=== PATIENT | male | born 1990 | race Caucasian/White ===

== ENCOUNTER 2016-12-17 00:46 | Emergency (ER) | payer SELFPAY ==
[2016-12-17 00:49] VITALS: BP 130/79
--- NOTE | 2016-12-17 02:09 | EDM.PDOC ---
ED HPI GENERAL MEDICAL PROBLEM - General Chief Complaint: General Stated Complaint: passed out and fell down stairs Time Seen by Provider: 12/17/16 01:00 Source of Information: Reports: Patient History Limitations: Reports: No Limitations - History of Present Illness INITIAL COMMENTS - FREE TEXT/NARRATIVE: Tennille is a 26 yo male who presents to the ER ambulatory with complaints of passing out. States this evening he was in his garage and had a couple shots of alcohol. Admits he wasn't feeling well and decided to go into the house to lay down. After getting his shoes off he became flushed, weak and dizzy. Next thing he knew his legs buckled and fell down the stairs. States he thinks it was very brief and lasted possibly 1 minute. When he came to he continued to feel warm. Admits to discomfort in the left hip/knee area. Denies any discomfort with ambulation however. States presently he feels his normal self. Onset: Today Duration: Resolved Prior to Arrival Location: Reports: Generalized Left Hip Pain Score (Numeric/FACES): 5 - Related Data Allergies Allergy/AdvReac Type Severity Reaction Status Date / Time Penicillins Allergy Mild Hives Verified 12/17/16 00:49 Home Meds: Home Meds Acetaminophen [Tylenol] 650 mg PO ASDIRECTED PRN 07/09/14 [History] Ibuprofen 400 mg PO Q6HR PRN 08/09/14 [History] Levothyroxine 1 tab PO DAILY 12/17/16 [History] Lisinopril 1 tab PO DAILY 12/17/16 [History] Past Medical History - Past Health History Medical/Surgical History: Denies Medical/Surgical History Cardiovascular History: Reports: Hypertension Respiratory History: Reports: Asthma Other Respiratory History: seasonal allergies Other Musculoskeletal History: broken leg when was young. right hand fracture last week Social & Family History - Family History Family Medical History: Noncontributory - Tobacco Use Smoking Status *Q: Current Every Day Smoker Years of Tobacco use: 4 Packs/Tins Daily: 0.5 Used Tobacco, but Quit: No Month Tobacco Last Used: January Second Hand Smoke Exposure: Yes - Alcohol Use Days Per Week of Alcohol Use: 0 Number of Drinks Per Day: 5 Total Drinks Per Week: 0 - Recreational Drug Use Recreational Drug Use: Yes Drug Use in Last 12 Months: Yes Recreational Drug Type: Reports: Marijuana/Hashish Recreational Drug Use Frequency: Socially - Living Situation & Occupation Occupation: Employed ED ROS GENERAL - Review of Systems Review Of Systems: See Below Constitutional: Reports: Weakness (resolved). Denies: Fever, Chills, Diaphoresis HEENT: Reports: No Symptoms Respiratory: Denies: Shortness of Breath, Wheezing, Cough Cardiovascular: Reports: Lightheadedness (resolved). Denies: Chest Pain, Dyspnea on Exertion, Palpitations GI/Abdominal: Reports: No Symptoms : Reports: No Symptoms Musculoskeletal: Reports: Leg Pain (left hip/knee). Denies: Neck Pain, Back Pain Skin: Reports: Other (abrasion to left hanley) Neurological: Reports: Dizziness (resolved), Syncope. Denies: Confusion, Headache, Numbness, Pre-Existing Deficit, Seizure, Tingling, Difficulty Walking , Gait Disturbance Psychiatric: Reports: No Symptoms ED EXAM, GENERAL - Physical Exam Exam: See Below Exam Limited By: No Limitations General Appearance: Alert, WD/WN, No Apparent Distress Eye Exam: Bilateral Eye: EOMI, Normal Inspection, PERRL Ears: Normal External Exam, Normal Canal, Hearing Grossly Normal, Normal TMs Nose: Normal Inspection, Normal Mucosa, No Blood Throat/Mouth: Normal Inspection, Normal Lips, Normal Teeth, Normal Gums, Normal Oropharynx, Normal Voice, No Airway Compromise Head: Atraumatic, Normocephalic. No: Facial Swelling Neck: Normal Inspection, Supple, Full Range of Motion Respiratory/Chest: No Respiratory Distress, Lungs Clear, Normal Breath Sounds, No Accessory Muscle Use Cardiovascular: Normal Peripheral Pulses, Regular Rate, Rhythm, No Edema, No Murmur GI/Abdominal: Normal Bowel Sounds, Soft, Non-Tender, No Organomegaly, No Distention, No Abnormal Bruit, No Mass Extremities: Normal Range of Motion (left hip and knee), Other (negative anterior and posterior drawer, no instability to left knee. Negative varus and valgus stretch. ) Neurological: Alert, Oriented, CN II-XII Intact, Normal Cognition, Normal Gait, No Motor/Sensory Deficits Psychiatric: Normal Affect, Normal Mood Skin Exam: Warm, Dry, Intact, Normal Color, Other (superficial abrasion to left lower hanley) Course - Vital Signs Last Recorded V/S: Last Vital Signs Temp 99.2 F 12/17/16 00:47 Pulse 97 12/17/16 00:47 Resp 18 12/17/16 00:47 BP 130/79 12/17/16 00:47 Pulse Ox 92 L 12/17/16 00:47 - Orders/Labs/Meds Orders: Active Orders 24 hr Category Date Time Status BMP [BASIC METABOLIC PANEL,BMP] [CHEM] Stat Lab 12/17/16 01:47 Ordered CBC WITH AUTO DIFF [HEME] Stat Lab 12/17/16 01:46 Ordered CREATINE KINASE,CK [CHEM] Stat Lab 12/17/16 01:46 Ordered TROPONIN I [CHEM] Stat Lab 12/17/16 01:46 Ordered EKG 12 Lead [EK] Routine Ther 12/17/16 01:46 Ordered Departure - Departure Time of Disposition: 02:39 Disposition: Home, Self-Care 01 Condition: Good Clinical Impression: Vaso vagal episode - Discharge Information Instructions: Vasovagal Syncope, Adult Referrals: Constance Barba PA-C [Primary Care Provider] - Additional Instructions: 1) Vasovagal handout given. 2) If symptoms return or any new onset of symptoms, recommend returning for further evaluation, as discussed. 3) Rest tonight 4) Encourage pushing fluids, drinking moderate amount of water daily 5) Laboratory work was stable, no concerning findings. - Problem List & Annotations (1) Vaso vagal episode SNOMED Code(s): 519876461 Code(s): R55 - SYNCOPE AND COLLAPSE Status: Acute Current Visit: Yes - Problem List Review Problem List Initiated/Reviewed/Updated: Yes - My Orders Last 24 Hours: My Active Orders 12/17/16 01:46 CBC WITH AUTO DIFF [HEME] Stat CREATINE KINASE,CK [CHEM] Stat TROPONIN I [CHEM] Stat EKG 12 Lead [EK] Routine 12/17/16 01:47 BMP [BASIC METABOLIC PANEL,BMP] [CHEM] Stat - Assessment/Plan Last 24 Hours: My Active Orders 12/17/16 01:46 CBC WITH AUTO DIFF [HEME] Stat CREATINE KINASE,CK [CHEM] Stat TROPONIN I [CHEM] Stat EKG 12 Lead [EK] Routine 12/17/16 01:47 BMP [BASIC METABOLIC PANEL,BMP] [CHEM] Stat Plan: Laboratory work was grossly unremarkable. No concerning findings on exam. No symptoms during entire time in ER. EKG showed NSR. Will discharge home with further instructions.
[2016-12-17 02:21] LABS: CHLORIDE,CL 102 mEq/L (98-106); SODIUM,NA 138 mEq/L (136-145)
== END 2016-12-17 02:45 | disposition home or self-care (01) ==
LOC: CC.ED 00:46
DX: R55 Syncope and collapse (principal); F17.210 Nicotine dependence, cigarettes, uncomplicated; I10 Essential (primary) hypertension; Z88.0 Allergy status to penicillin; Z79.899 Other long term (current) drug therapy
CPT/HCPCS: 36415; 80048; 82550; 84484; 85025; 85379; 99284

== ENCOUNTER 2019-01-15 12:17 | Emergency (ER) | payer OTHER ==
[2019-01-15 12:21] VITALS: BP 175/120; PULSE 105
--- NOTE | 2019-01-15 12:36 | EDM.PDOC ---
ED HPI GENERAL MEDICAL PROBLEM - General Chief Complaint: Lower Extremity Injury/Pain Stated Complaint: heel pain/swelling Time Seen by Provider: 01/15/19 12:28 Source of Information: Reports: Patient History Limitations: Reports: No Limitations - History of Present Illness INITIAL COMMENTS - FREE TEXT/NARRATIVE: in with c/o pain to the left heel, no injury or trauma, no other foot pain, no ankle pain, no knee pain, no redness, numbness or swelling, no bruising, no pain with palpation, no other sx Onset: Other (3 days) Duration: Day(s): Location: Reports: Lower Extremity, Left Quality: Reports: Ache Severity: Mild Improves with: Reports: None Worsens with: Reports: Movement (walking) Associated Symptoms: Reports: No Other Symptoms. 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: Other (see below) (none) Left Foot Pain Score (Numeric/FACES): 1 - Related Data Allergies Allergy/AdvReac Type Severity Reaction Status Date / Time Penicillins Allergy Mild Hives Verified 01/15/19 12:49 Home Meds: Home Meds Acetaminophen [Tylenol] 650 mg PO ASDIRECTED PRN 07/09/14 [History] Ibuprofen 400 mg PO Q6HR PRN 08/09/14 [History] Levothyroxine 1 tab PO DAILY 12/17/16 [History] Ketorolac [Toradol] 10 mg PO TID PRN 5 Days #10 tab 01/15/19 [Rx] Past Medical History - Past Health History Medical/Surgical History: Denies Medical/Surgical History HEENT History: Reports: None Cardiovascular History: Reports: Hypertension Respiratory History: Reports: Asthma Other Respiratory History: seasonal allergies Gastrointestinal History: Reports: None Genitourinary History: Reports: None Other Musculoskeletal History: broken leg when was young. right hand fracture last week Neurological History: Reports: None Psychiatric History: Reports: Anxiety, Panic Attack Endocrine/Metabolic History: Reports: Hyperthyroidism Hematologic History: Reports: None Immunologic History: Reports: None Oncologic (Cancer) History: Reports: None Dermatologic History: Reports: None - Past Surgical History Head Surgeries/Procedures: Reports: None Social & Family History - Family History Family Medical History: Noncontributory - Caffeine Use Caffeine Use: Reports: None - Living Situation & Occupation Occupation: Employed Review of Systems - Review of Systems Review Of Systems: See Below Constitutional: Reports: No Symptoms. Denies: Chills, Fever Respiratory: Reports: No Symptoms Cardiovascular: Reports: No Symptoms GI/Abdominal: Reports: No Symptoms. Denies: Abdominal Pain, Nausea, Vomiting Musculoskeletal: Reports: Foot Pain. Denies: Neck Pain, Shoulder Pain, Back Pain Skin: Reports: No Symptoms. Denies: Bruising, Rash, Erythema Neurological: Reports: No Symptoms. Denies: Numbness, Tingling, Weakness Psychiatric: Reports: No Symptoms ED EXAM, GENERAL - Physical Exam Exam: See Below Exam Limited By: No Limitations General Appearance: Alert, WD/WN, No Apparent Distress Ears: Normal External Exam Nose: Normal Inspection Throat/Mouth: Normal Inspection, Normal Voice, No Airway Compromise Head: Atraumatic, Normocephalic Neck: Normal Inspection, Supple, Non-Tender, Full Range of Motion Respiratory/Chest: No Respiratory Distress, Lungs Clear, Normal Breath Sounds Cardiovascular: Normal Peripheral Pulses, Regular Rate, Rhythm, No Murmur Peripheral Pulses: 2+: Posterior Tibial (L), Dorsalis Pedis (L) Extremities: Normal Inspection, Normal Range of Motion, Normal Capillary Refill , Other (tenderness to the post heel only, no pain with palpation of the plantar area ) Neurological: Alert, Oriented, Normal Cognition, Normal Gait, No Motor/Sensory Deficits Psychiatric: Normal Affect, Normal Mood Skin Exam: Warm, Dry, Intact, Normal Color Course - Vital Signs Last Recorded V/S: Last Vital Signs Temp 37.0 C 01/15/19 12:19 Pulse 105 H 01/15/19 12:19 Resp BP 175/120 H 01/15/19 13:00 Pulse Ox 96 01/15/19 12:19 - Orders/Labs/Meds Orders: Active Orders 24 hr Category Date Time Status Calcaneous Lt [CR] Stat Exams 01/15/19 12:32 Taken cloNIDine [Catapres] Med 01/16/19 12:45 Once 0.2 mg PO ONETIME ONE Medication Orders Clonidine HCl (Catapres) 0.2 mg PO ONETIME ONE Stop: 01/16/19 12:46 Last Admin: 01/15/19 13:00 Dose: 0.2 mg Meds: Medications Generic Name Dose Route Start Last Admin Trade Name Jeff PRN Reason Stop Dose Admin Clonidine HCl 0.2 mg 01/16/19 12:45 01/15/19 13:00 Catapres PO 01/16/19 12:46 0.2 mg ONETIME ONE Administration Discontinued Medications Generic Name Dose Route Start Last Admin Trade Name Jeff PRN Reason Stop Dose Admin Clonidine HCl Confirm 01/15/19 12:44 Catapres Administered 01/15/19 12:45 Dose 0.1 mg .ROUTE .STK-MED ONE Clonidine HCl Confirm 01/15/19 12:45 Catapres Administered 01/15/19 12:46 Dose 0.1 mg .ROUTE .STK-MED ONE - Re-Assessments/Exams Free Text/Narrative Re-Assessment/Exam: 01/15/19 12:34 neg xray of the heel, radiology reading still pending Departure - Departure Time of Disposition: 13:27 Disposition: Home, Self-Care 01 Condition: Good Clinical Impression: Tendinitis of left foot, Hypertension, poor control - Discharge Information *PRESCRIPTION DRUG MONITORING PROGRAM REVIEWED*: Not Applicable *COPY OF PRESCRIPTION DRUG MONITORING REPORT IN PATIENT NEFTALI: Not Applicable Prescriptions: Ketorolac [Toradol] 10 mg PO TID PRN 5 Days #10 tab PRN Reason: Pain (Moderate 4-6) Instructions: Tendinitis Referrals: PCP,None [Primary Care Provider] - Forms: ED Department Discharge Additional Instructions: elevate foot on 2 pillows warm moist heat off and on frequently follow up with your family doctor, call thursday for an appointment time return to the ER sooner if worse or problems ketorolac 10mg 3 x a day as needed for pain monitor your blood pressure closely, take your medication as ordered, have your doctor reevaluate your blood pressure Thursday - Problem List & Annotations (1) Tendinitis of left foot SNOMED Code(s): 730643332 Code(s): M77.52 - OTHER ENTHESOPATHY OF LEFT FOOT AND ANKLE Status: Acute Priority: Medium Current Visit: No (2) Hypertension, poor control SNOMED Code(s): 556122642 Code(s): I10 - ESSENTIAL (PRIMARY) HYPERTENSION Status: Acute Priority: Medium Current Visit: No - Problem List Review Problem List Initiated/Reviewed/Updated: Yes - My Orders Last 24 Hours: My Active Orders 01/15/19 12:32 Calcaneous Lt [CR] Stat 01/16/19 12:45 cloNIDine [Catapres] 0.2 mg PO ONETIME ONE - Assessment/Plan Last 24 Hours: My Active Orders 01/15/19 12:32 Calcaneous Lt [CR] Stat 01/16/19 12:45 cloNIDine [Catapres] 0.2 mg PO ONETIME ONE Assessment:: as above
[2019-01-15] MEDS ORDERED: cloNIDine 0.1 MG Tab ONE ×2 (12:44→12:45)
[2019-01-16] MEDS ORDERED: cloNIDine 0.1 MG Tab PO ONE (12:45)
== END 2019-01-15 12:55 | disposition home or self-care (01) ==
LOC: CC.ED 12:17
DX: M77.9 Enthesopathy, unspecified (principal); I10 Essential (primary) hypertension; Z88.0 Allergy status to penicillin
CPT/HCPCS: 73650-LT; 99283-25; A9270-GY